=== PATIENT | male | born 1970 | race Caucasian/White ===

== ENCOUNTER 2017-08-15 19:06 | Emergency (ER) | payer SELFPAY ==
[2017-08-15] MEDS ORDERED: NEOMYCIN-BACITRACIN-POLYMYXIN 0.9 GM UD TOP ONE (19:29)
[2017-08-15] MEDS ORDERED: LIDOCAINE 2% W/ EPINEPHRINE 20 ML VIAL INJ ONE ×2 (19:29→19:30)
[2017-08-15] MEDS ORDERED: CHLORHEXIDINE GLUCONATE 4 % 15 ML UD TOP ONE (19:30)
[2017-08-15] MEDS ORDERED: TETANUS,DIPHTHERIA,PERTUSSIS 1 EA SYG IM ONE (20:04)
--- NOTE | 2017-08-15 20:07 | ED.PDOC ---
History of Present Illness - General Chief Complaint: Laceration Stated Complaint: Laceration Left hand Time Seen by Provider: 08/15/17 19:29 Source: patient, RN notes reviewed, Vital Signs reviewed Exam Limitations: no limitations - History of Present Illness Initial Comments: Patient comes in with a laceration to the palm of his L hand. Cut with a knife ~ 5 hours prior to arrival. Won't stop bleeding. Timing/Duration: this afternoon Severity: moderate Location: hands Improving Factors: other - pressure Worsening Factors: movement Associated Symptoms: denies symptoms Allergies/Adverse Reactions: Allergies NO KNOWN ALLERGY Allergy (Verified 08/15/17 19:22) Review of Systems - Review of Systems Constitutional: States: no symptoms reported Respiratory: States: no symptoms reported Cardiology: States: no symptoms reported Musculoskeletal: States: no symptoms reported Skin: States: see HPI Neurological: States: no symptoms reported. Denies: numbness, paresthesia, tingling All other Systems: No Change from Baseline Past Medical History (General) - Patient Medical History Hx Seizures: No Hx Stroke: No Hx Dementia: No Hx Asthma: No Hx of COPD: No Hx Cardiac Disorders: No Hx Congestive Heart Failure: No Hx Pacemaker: No Hx Hypertension: Yes Hx Thyroid Disease: No Hx Diabetes: No Hx Gastroesophageal Reflux: No Hx Renal Disease: No Hx Cancer: No Hx of HIV: No Hx Hepatitis C: No Hx MRSA: No Surgical History: no surgical history - Vaccination History Hx Tetanus, Diphtheria Vaccination: No Hx Influenza Vaccination: No Hx Pneumococcal Vaccination: No Immunizations Up to Date: Yes - Social History Hx Tobacco Use: No Hx Alcohol Use: Yes Family Medical History - Family History Mother Living Status: Still Living Hx Family Stroke: Yes Father Living Status: Cause of : Drowning Physical Exam - Physical Exam General Appearance: Alert, Comfortable, No apparent distress, Well Developed, Well Groomed, Well Hydrated, Well Nourished Cardiovascular/Chest: normal peripheral pulses Respiratory: no respiratory distress Extremity: normal range of motion, non-tender Neurologic: no motor/sensory deficits, alert, normal mood/affect, oriented x 3 Skin Exam: warm/dry, normal color Skin Problem Location: upper extremities - Palm of L hand over thenar emenance Skin Character: linear - 3 cm superficial laceration Comments: Vital Signs 08/15/17 19:22 Temperature 97.9 F Pulse Rate [ 74 Right Radial] Respiratory 18 Rate Blood Pressure 168/93 [Right Arm] O2 Sat by Pulse 96 Oximetry Procedures - Laceration/Wound Repair Left Volar Hand Wound Length (cm): 3 Wound's Depth, Shape: superficial, linear Wound Explored: no foreign body removed Betadine Prep?: Yes - Cleaned and scrubbed with Hibiclens after soaking in Hibiclens for 10 min Anesthesia: Lidocaine w/ Epi Volume Anesthetic (cc's): 3 Wound Debrided: minimal Wound Repaired With: sutures Suture Size/Type: 4:0, prolene Number of Sutures: 5 Layer Closure?: No Sterile Dressing Applied?: Yes Splint Applied?: No Sling Applied?: No Departure - Departure Clinical Impression: Laceration of left hand without complication, excluding fingers Qualifiers: Encounter type: initial encounter Qualified Code(s): S61.412A - Laceration without foreign body of left hand, initial encounter Time of Disposition: 20:09 Disposition: Discharge to Home or Self Care Condition: Good Departure Forms: ED Discharge - Pt. Copy, Patient Portal Self Enrollment Instructions: DI for Laceration Repair -- Simple Diet: resume usual diet Activity: increase activity as tolerated Referrals: JUD[facility] [employer] [employer] [Primary Care Provider] - 1-2 Weeks Additional Instructions: Suture removal in 7-10 days
[2017-08-15 20:22] VITALS: BP 154/86; TEMP 98.1; O2SAT 93
== END 2017-08-15 20:22 | disposition home or self-care (01) ==
LOC: ER 19:06
DX: S61.412A Laceration without foreign body of left hand, initial encounter (principal); I10 Essential (primary) hypertension; Z23 Encounter for immunization; W26.0XXA Contact with knife, initial encounter; Y92.9 Unspecified place or not applicable

== ENCOUNTER → 2020-07-15 | Outpatient (CLI) | payer SELFPAY ==
--- NOTE | 2020-07-15 15:19 | RAD ---
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 Findings: 3 view(s)/radiograph(s) No acute fracture or dislocation. No focal soft tissue swelling. Mild midfoot osteoarthritis. First digit IP asymmetric joint space narrowing with adjacent soft tissue calcifications. IMPRESSION: Right foot first digit IP arthropathy. Electronically signed by: Esdras Tena MD 07/15/2020 3:17 PM CDT
== END ==
LOC: RAD 10:20
PROVIDERS: ATTEND Nurse Practitioner Family
DX: M1A.0711 Idiopathic chronic gout, right ankle and foot, with tophus (tophi) (principal); M19.071 Primary osteoarthritis, right ankle and foot